=== PATIENT | male | born 1990 | race American Indian/Alaskan Native ===

== ENCOUNTER 2018-03-06 23:41 | Emergency (ER) | payer MEDICAID ==
[2018-03-06 23:53] VITALS: BP 172/95
[2018-03-07 00:36] LABS: Hematocrit 34.8 % (35.5-45.6); Hemoglobin 11.6 gm/dl (11.8-15.2); Mean Corpuscular HGB Conc 34 % (32-34); Mean Corpuscular Hemoglobin 33 pg (28-32); Mean Corpuscular Volume 99 fl (84-94); Platelet Count 448 K/mm3 (140-440); Red Cell Distribution Width 13.9 % (13.2-15.2)
[2018-03-07 00:37] LABS: Basophils # (Auto) 0.1 K/mm3 (0.0-0.1); Eosinophils % (Auto) 0.4 % (0.0-4.3); Lymphocytes % (Auto) 31.1 % (13.4-35.0); Monocytes # (Auto) 0.5 K/mm3 (0.0-0.8)
[2018-03-07 00:53] LABS: Calcium 9.6 mg/dL (8.4-10.2)
--- NOTE | 2018-03-07 01:02 | XRay Report ---
FINAL REPORT EXAM: XR HAND 2V RT HISTORY: Rt middle finger pain and swelling TECHNIQUE: AP and lateral views of the right hand were submitted. FINDINGS: There is fusiform soft tissue swelling around the middle finger. There is no evidence of fracture or dislocation. There is no evidence of radiopaque foreign body. The wrist joint is well maintained. IMPRESSION: Fusiform soft tissue swelling around the middle finger. No evidence of fracture dislocation or foreign body.
[2018-03-07 03:11] LABS: Bilirubin,Urine NEG (Negative); Blood,Urine MOD (Negative); Color,Urine Straw (Yellow); Urobilinogen,Urine < 2.0 mg/dL (<2.0)
[2018-03-07] MEDS ORDERED: HumuLIN R IV ONE (04:16)
[2018-03-07] MEDS ORDERED: NACL 0.9% 1000 ML 1,000 ML IV ONE (04:16)
== END 2018-03-07 05:16 | disposition left against medical advice (07) ==
LOC: ED 23:41
DX: M79.644 Pain in right finger(s) (principal); M79.641 Pain in right hand; E11.9 Type 2 diabetes mellitus without complications; Z53.21 Procedure and treatment not carried out due to patient leaving prior to being seen by health care provider
CPT/HCPCS: 36415; 80048; 81001; 82805; 82962; 85025